=== PATIENT | male | born 1990 ===

== ENCOUNTER 2020-04-16 09:09 | Outpatient (RCR) | payer BC ==
[2020-04-16 10:44] LABS: SEMEN VOLUME 4.1 ML (1.5-5.0)
== END 2020-07-15 | disposition home or self-care (01) ==
LOC: LAB 09:09
PROVIDERS: ATTEND Nurse Practitioner Family
DX: N46.9 Male infertility, unspecified (principal)
CPT/HCPCS: 89320

== ENCOUNTER → 2021-05-04 | Outpatient (CLI) | payer BC | LOC: LABNPT 06:25 | PROVIDERS: ATTEND Otolaryngology Otolaryngology/Facial Plastic Surgery | DX: Z01.812 Encounter for preprocedural laboratory examination (principal); Z53.9 Procedure and treatment not carried out, unspecified reason ==

== ENCOUNTER 2021-05-06 05:42 | Outpatient (CLI) | payer BC ==
[~2021-05-06] VITALS: Ht 167.7 cm; Wt 60.9 kg
[2021-05-10] MEDS ORDERED: TEMA15CA PO (16:07)
[2021-05-10] MEDS ORDERED: FINA1TAB16 PO (16:07)
== END 2021-05-10 16:11 | disposition home or self-care (01) ==
LOC: PREOP 05:42
PROVIDERS: ATTEND Otolaryngology Otolaryngology/Facial Plastic Surgery
DX: Z01.818 Encounter for other preprocedural examination (principal)